=== PATIENT | male | born 1990 | race Caucasian/White ===

== ENCOUNTER 2017-08-10 17:32 | Emergency (ER) | payer MEDICAID | END 2017-08-10 20:41 | disposition home or self-care (01) | LOC: D.ER 17:32 | DX: S01.551A Open bite of lip, initial encounter (principal); W54.0XXA Bitten by dog, initial encounter; Y93.89 Activity, other specified; Y92.019 Unspecified place in single-family (private) house as the place of occurrence of the external cause ==